=== PATIENT | male | born 1935 | race African-American/Black ===

== ENCOUNTER 2018-09-15 16:01 | Inpatient (IN) | payer OTHER ==
[~2018-09-15] VITALS: Ht 172.7 cm; Wt 123.8 kg
[2018-09-15] MEDS ORDERED: APIX2.5T PO (16:08)
[2018-09-15] MEDS ORDERED: VALS40TA11 PO (16:08)
[2018-09-15] MEDS ORDERED: CARV3.1242 PO (16:08)
[2018-09-15] MEDS ORDERED: METF-816 PO (16:08)
[2018-09-15] MEDS ORDERED: GLIP5TAB12 PO (16:08)
[2018-09-15] MEDS ORDERED: ATOR10TA69 PO (16:08)
[2018-09-15 18:20] LABS: CHLORIDE 101 mEq/L (98-107)
[2018-09-15 18:36] LABS: BASOPHILS % 0.5 % (0.0-2.0); EOSINOPHILS % 4.6 % (0.0-5.0); HEMATOCRIT. 32.7 % (42.0-52.0); HEMOGLOBIN. 10.8 g/dL (14.0-18.0); LYMPHOCYTES % 7.7 % (20.0-50.0); MEAN CORPUSCULAR HEMOGLOBIN 28.9 pg (28.0-32.0); MEAN PLATELET VOLUME 11.7 fl (7.4-10.4); NEUTROPHILS % 81.2 % (40.0-76.0); PLATELET 87 x1000/uL (130-400); RED BLOOD CELL COUNT 3.72 mill/uL (4.7-6.1); RED CELL DISTRIBUTION WIDTH 16.2 % (11.6-14.6)
[2018-09-15 18:42] LABS: CLARITY URINE CLEAR (CLEAR); COLOR URINE YELLOW (YELLOW); KETONES URINE NEGATIVE (NEGATIVE); LEUKOCYTE ESTERASE URINE NEGATIVE (NEGATIVE); NITRITE URINE NEGATIVE (NEGATIVE); OCCULT BLOOD URINE NEGATIVE (NEGATIVE); PROTEIN URINE NEGATIVE (NEGATIVE); SPECIFIC GRAVITY URINE 1.009 (1.005-1.030); UROBILINOGEN URINE 0.2 E.U./dL (0.2-1.0)
[2018-09-15 19:01] LABS: *BARBITURATES SCREEN URINE NEGATIVE (NEGATIVE)
[2018-09-15 19:02] LABS: *AMPHETAMINES SCREEN URINE NEGATIVE (NEGATIVE); *BENZODIAZEPINES SCREEN URINE NEGATIVE (NEGATIVE); *COCAINE SCREEN URINE NEGATIVE (NEGATIVE); METHADONE URINE SCREEN NEGATIVE (NEGATIVE); OPIATES URINE SCREEN NEGATIVE (NEGATIVE); PHENCYCLIDINE URINE SCREEN NEGATIVE (NEGATIVE)
[2018-09-15 19:03] LABS: CANNABINOID URINE SCREEN NEGATIVE (NEGATIVE)
[2018-09-15] MEDS ORDERED: ASPIRIN 325MG EC TABLET PO ONE (19:45)
[2018-09-15] MEDS ORDERED: CLONIDINE 0.2MG TABLET PO ONE (20:00)
[2018-09-15] MEDS ORDERED: ZOLPIDEM TARTRATE 5MG TABLET PO PRN (21:00)
[2018-09-15] MEDS ORDERED: ACETAMINOPHEN 325MG TABLET PO PRN (21:45)
[2018-09-15] MEDS ORDERED: TRAMADOL 50MG TABLET PO PRN (21:45)
[2018-09-15] MEDS ORDERED: GUAIFENESIN 200MG/10ML SUGAR FREE UDC PO PRN (21:45)
[2018-09-15] MEDS ORDERED: DEXTROSE 50% WATER 50ML SYRINGE IV PRN (21:45)
[2018-09-15] MEDS ORDERED: DOCUSATE SODIUM 100MG CAPSULE PO PRN (21:45)
[2018-09-15] MEDS ORDERED: NA PHOS,M-B/NA PHOS,DI-BA ENEMA 118ML PR PRN (21:45)
[2018-09-15] MEDS ORDERED: MORPHINE SULFATE 2 MG/ML CPJ (NOT FOR IM USE) IV PRN (21:45)
[2018-09-15] MEDS ORDERED: MAGNESIUM/ALUMINUM HYDROXIDE/SIMETHICONE 30ML UDC PO PRN (21:45)
[2018-09-15 22:46] LABS: TOTAL IRON BINDING CAPACITY 218 ug/dL (250-450)
[2018-09-15 23:47] LABS: CREATINE KINASE MB FRACTION 11.8 ng/mL (0.5-3.6)
[2018-09-16] VITALS (9 sets, daily range): BP systolic 140–174; BP diastolic 62–75
[2018-09-16] MEDS: HYDRALAZINE HCL 50MG TABLET PO SCH ×5 (00:15→22:10)
[2018-09-16] MEDS: ENOXAPARIN 120MG/0.8ML SYR SUBCUT SCH ×2 (04:34→12:07)
[2018-09-16] MEDS ORDERED: APIXABAN 2.5 MG TABLET PO SCH (06:00)
[2018-09-16] MEDS: CLONIDINE 0.1MG TABLET PO PRN (06:02)
[2018-09-16 06:37] LABS: CREATINE KINASE MB FRACTION 9.8 ng/mL (0.5-3.6)
[2018-09-16] MEDS: BLOOD SUGAR DIAGNOSTIC STRIP TEST SCH ×4 (10:00→21:00)
[2018-09-16] MEDS: INSULIN LISPRO 100 UNITS/ML SUBCUT SCH ×4 (10:00→21:23)
[2018-09-16] MEDS: ASPIRIN 325MG EC TABLET PO SCH (10:38)
[2018-09-16] MEDS: LISINOPRIL 20MG TABLET PO SCH ×2 (10:41→21:22)
[2018-09-16] MEDS: FAMOTIDINE 20MG TABLET PO SCH (11:04)
[2018-09-16] MEDS ORDERED: LIDOCAINE HCL 1% 20ML VIAL (Pyxis) INJ ONE (13:50)
[2018-09-16] MEDS ORDERED: IODIXANOL 320MG/ML 100 ML BOTTLE IV ONE (14:16)
[2018-09-16] MEDS ORDERED: MIDAZOLAM HCL 2 MG/2 ML VIAL ONE (14:23)
[2018-09-16] MEDS ORDERED: FENTANYL CITRATE/PF 50MCG/ML 2ML VIAL ONE (14:23)
[2018-09-16] MEDS ORDERED: HEPARIN SODIUM 1,000 UNIT/1ML VIAL IV ONE (16:27)
[2018-09-16] MEDS ORDERED: NITROGLYCERIN 50MCG/ML 10ML VIAL (CATH LAB) IV ONE (16:27)
[2018-09-16] MEDS ORDERED: NICARDIPINE 100MCG/ML 10ML VIAL (CATH LAB) IV ONE (16:27)
[2018-09-16] MEDS ORDERED: SODIUM CHLORIDE 0.9% 500 ML IV NR (16:30)
[2018-09-16] MEDS: ENOXAPARIN 100MG/ML SYR SUBCUT SCH (21:00)
[2018-09-16] MEDS: ATORVASTATIN CALCIUM 10MG TABLET PO SCH (21:22)
[2018-09-16] MEDS: IPRATROPIUM/ALBUTEROL 0.5-3(2.5)MG/3ML NEB INH PRN (21:39)
[2018-09-17] VITALS (12 sets, daily range): BP systolic 145–179; BP diastolic 62–95
[2018-09-17] MEDS: CLONIDINE 0.1MG TABLET PO PRN ×2 (04:08→17:36)
[2018-09-17] MEDS: HYDRALAZINE HCL 50MG TABLET PO SCH (06:08)
[2018-09-17] MEDS: BLOOD SUGAR DIAGNOSTIC STRIP TEST SCH ×4 (06:08→21:00)
[2018-09-17] MEDS: INSULIN LISPRO 100 UNITS/ML SUBCUT SCH ×4 (06:25→21:31)
[2018-09-17] MEDS: FAMOTIDINE 20MG TABLET PO SCH (08:36)
[2018-09-17] MEDS: ASPIRIN 325MG EC TABLET PO SCH (08:36)
[2018-09-17] MEDS: LISINOPRIL 20MG TABLET PO SCH ×2 (08:36→21:30)
[2018-09-17] MEDS: ENOXAPARIN 100MG/ML SYR SUBCUT SCH ×2 (08:38→21:30)
[2018-09-17 09:19] LABS: BASOPHILS % 0.5 % (0.0-2.0); EOSINOPHILS % 6.4 % (0.0-5.0); HEMATOCRIT. 37.4 % (42.0-52.0); HEMOGLOBIN. 12.3 g/dL (14.0-18.0); LYMPHOCYTES % 14.8 % (20.0-50.0); MEAN CORPUSCULAR HEMOGLOBIN 28.9 pg (28.0-32.0); MEAN CORPUSCULAR VOLUME 87.9 fL (80.0-94.0); NEUTROPHILS % 70.3 % (40.0-76.0); PLATELET 91 x1000/uL (130-400); RED BLOOD CELL COUNT 4.26 mill/uL (4.7-6.1)
[2018-09-17 11:06] LABS: PHOSPHORUS 3.1 mg/dL (2.5-4.9)
[2018-09-17] MEDS: HYDRALAZINE HCL 100MG TABLET PO SCH ×2 (14:22→21:30)
[2018-09-17] MEDS: AMMONIUM LACTATE 12% LOTION 240ML TOP SCH ×2 (14:24→16:38)
[2018-09-17] MEDS: ATORVASTATIN CALCIUM 10MG TABLET PO SCH (21:30)
[2018-09-17 23:34] LABS: VITAMIN B12 SERUM 1254 pg/mL (211-911)
[2018-09-17 23:35] LABS: FOLIC ACID (FOLATE) SERUM > 20.00 ng/mL (>5.38)
[2018-09-18] VITALS (17 sets, daily range): BP systolic 138–181; BP diastolic 51–96
[2018-09-18] MEDS: HYDRALAZINE HCL 100MG TABLET PO SCH ×3 (06:17→21:02)
[2018-09-18] MEDS: BLOOD SUGAR DIAGNOSTIC STRIP TEST SCH ×4 (06:17→21:00)
[2018-09-18] MEDS: INSULIN LISPRO 100 UNITS/ML SUBCUT SCH ×4 (06:34→21:00)
[2018-09-18] MEDS: NITROGLYCERIN 0.4MG TABLET SL SL PRN ×2 (07:51→08:04)
[2018-09-18] MEDS: IPRATROPIUM/ALBUTEROL 0.5-3(2.5)MG/3ML NEB INH PRN (08:18)
[2018-09-18] MEDS: LISINOPRIL 20MG TABLET PO SCH ×2 (08:20→21:02)
[2018-09-18] MEDS: ASPIRIN 325MG EC TABLET PO SCH (08:20)
[2018-09-18] MEDS: FAMOTIDINE 20MG TABLET PO SCH (08:20)
[2018-09-18] MEDS: AMMONIUM LACTATE 12% LOTION 240ML TOP SCH ×2 (08:20→17:32)
[2018-09-18 08:26] LABS: BASOPHILS % 0.7 % (0.0-2.0); EOSINOPHILS % 7.4 % (0.0-5.0); HEMATOCRIT. 37.2 % (42.0-52.0); HEMOGLOBIN. 12.1 g/dL (14.0-18.0); LYMPHOCYTES % 17.1 % (20.0-50.0); MEAN CORPUSCULAR HEMOGLOBIN 28.2 pg (28.0-32.0); MEAN CORPUSCULAR VOLUME 86.7 fL (80.0-94.0); MEAN PLATELET VOLUME 11.1 fl (7.4-10.4); MONOCYTES % 9.5 % (2.0-8.0); NEUTROPHILS % 65.3 % (40.0-76.0); PLATELET 102 x1000/uL (130-400); RED CELL DISTRIBUTION WIDTH 15.9 % (11.6-14.6)
[2018-09-18 08:35] LABS: PHOSPHORUS 3.1 mg/dL (2.5-4.9)
[2018-09-18] MEDS: ENOXAPARIN 100MG/ML SYR SUBCUT SCH (08:35)
[2018-09-18] MEDS: NITROGLYCERIN OINT 1GM/INCH UDPKT TD SCH ×4 (09:50→21:02)
[2018-09-18] MEDS ORDERED: ALPRAZOLAM 0.25 MG TABLET PO PRN (13:00)
[2018-09-18] MEDS ORDERED: NITROGLYCERIN 0.4MG TABLET SL SL PRN (13:00)
[2018-09-18] MEDS ORDERED: HEPARIN 25,000 UNITS PREMIX 500 ML IV SCH (13:15)
[2018-09-18] MEDS: SODIUM CHLORIDE 0.9% INJ 3ML FLUSH IVF SCH ×2 (14:18→21:02)
[2018-09-18] MEDS: CARVEDILOL 3.125 MG TABLET PO SCH ×2 (14:18→21:02)
[2018-09-18 15:20] LABS: INR 1.2; PROTHROMBIN TIME 11.6 sec (9.1-11.1)
[2018-09-18] MEDS ORDERED: HEPARIN 5000 UNITS/ML VIAL IV PRN ×2 (16:30)
[2018-09-18] MEDS ORDERED: HEPARIN 25,000 UNITS PREMIX 500 ML IV PRN (17:00)
[2018-09-18] MEDS ORDERED: DOCUSATE SODIUM 100MG CAPSULE PO SCH (21:00)
[2018-09-18] MEDS ORDERED: CHLORHEXIDINE GLUCONATE 4% EXTERNAL USE TOP SCH (21:00)
[2018-09-18] MEDS ORDERED: BISACODYL 10MG SUPP PR PRN (21:00)
[2018-09-18] MEDS ORDERED: ASCORBIC ACID 500 MG TABLET PO SCH (21:00)
[2018-09-18] MEDS: ALLOPURINOL 300 MG TABLET PO SCH (21:02)
[2018-09-18] MEDS: ATORVASTATIN CALCIUM 10MG TABLET PO SCH (21:02)
[2018-09-19] VITALS (39 sets, daily range): BP systolic 82–199; BP diastolic 22–74
[2018-09-19] MEDS: HYDRALAZINE HCL 100MG TABLET PO SCH ×2 (05:18→17:00)
[2018-09-19] MEDS: ALLOPURINOL 300 MG TABLET PO SCH (05:18)
[2018-09-19] MEDS: CHLORHEXIDINE GLUCONATE 4% EXTERNAL USE TOP SCH ×2 (05:18→17:00)
[2018-09-19] MEDS: SODIUM CHLORIDE 0.9% INJ 3ML FLUSH IVF SCH ×3 (05:19→22:00)
[2018-09-19 05:49] LABS: BASOPHILS % 0.5 % (0.0-2.0); EOSINOPHILS % 4.9 % (0.0-5.0); HEMATOCRIT. 35.1 % (42.0-52.0); HEMOGLOBIN. 11.3 g/dL (14.0-18.0); LYMPHOCYTES % 10.2 % (20.0-50.0); MEAN CORPUSCULAR HEMOGLOBIN 27.9 pg (28.0-32.0); MEAN PLATELET VOLUME 11.2 fl (7.4-10.4); MONOCYTES % 10.5 % (2.0-8.0); NEUTROPHILS % 73.9 % (40.0-76.0); PLATELET 105 x1000/uL (130-400); RED BLOOD CELL COUNT 4.04 mill/uL (4.7-6.1); RED CELL DISTRIBUTION WIDTH 15.9 % (11.6-14.6)
[2018-09-19 05:52] LABS: INR 1.2; PARTIAL THROMBOPLASTIN TIME 62.1 sec (23.4-31.0); PROTHROMBIN TIME 11.6 sec (9.1-11.1)
[2018-09-19 05:59] LABS: CHLORIDE 104 mEq/L (98-107)
[2018-09-19] MEDS ORDERED: EPINEPHRINE 4 MG in DEXT 5% WATER 246 ML IV SCH (06:00)
[2018-09-19] MEDS ORDERED: INSULIN REGULAR (DRIP) 100 UNITS in SODIUM CHLORIDE 0.9% 99 ML IV SCH (06:00)
[2018-09-19] MEDS ORDERED: PAPAVERINE HCL 180MG in SODIUM CHLORIDE 0.9% 24ML IV SCH (06:00)
[2018-09-19] MEDS ORDERED: VANCOMYCIN 1G PREMIX 200ML IV SCH (06:00)
[2018-09-19] MEDS ORDERED: NOREPINEPHRINE 4 MG in DEXT 5% WATER 246 ML IV SCH (06:00)
[2018-09-19] MEDS ORDERED: NICARDIPINE 40MG/200ML PREMIX 200 ML IV SCH (06:00)
[2018-09-19] MEDS ORDERED: DEL NIDO ELECTROLYTE-S(PH 7.4) 1,000 ML IV SCH ×2 (06:00)
[2018-09-19] MEDS ORDERED: AMINOCAPROIC ACID 10,000 MG in SODIUM CHLORIDE 0.9% 460 ML IV SCH (06:00)
[2018-09-19] MEDS ORDERED: DOBUTAMINE 250MG PREMIX 250 ML IV SCH (06:00)
[2018-09-19] MEDS ORDERED: ALFENTANIL HCL 500 MCG/ML 2ML AMPUL IJ ONE (06:03)
[2018-09-19] MEDS ORDERED: SUFENTANIL CITRATE 50 MCG/ML 5ML AMPUL IV ONE (06:04)
[2018-09-19] MEDS ORDERED: MIDAZOLAM HCL 5 MG/ML VIAL ONE (06:04)
[2018-09-19 06:05] LABS: PHOSPHORUS 3.9 mg/dL (2.5-4.9)
[2018-09-19] MEDS: BLOOD SUGAR DIAGNOSTIC STRIP TEST SCH ×8 (06:06→23:00)
[2018-09-19] MEDS ORDERED: GELATIN SPONGE,ABSORBABLE 12-7MM SPONGE ONE ×2 (06:08→09:29)
[2018-09-19] MEDS ORDERED: BACITRACIN 50,000 UNITS/VIAL ONE (06:08)
[2018-09-19] MEDS ORDERED: THROMBIN (BOVINE) 5000 UNITS/VIAL TOP ONE ×3 (06:08→09:25)
[2018-09-19] MEDS ORDERED: NORMAL SALINE 0.9% 10 ML SYR ONE ×2 (06:08→06:09)
[2018-09-19] MEDS ORDERED: BACITRACIN 15GM TUBE TOP ONE (06:09)
[2018-09-19] MEDS ORDERED: METHYLENE BLUE 50 MG/10 ML AMP IV ONE (06:21)
[2018-09-19] MEDS ORDERED: HEPARIN 1000 UNITS/ML 10ML ONE ×2 (06:21→07:10)
[2018-09-19] MEDS ORDERED: MORPHINE SULFATE 4 MG/ML CPJ (NOT FOR IM USE) IV PRN (06:30)
[2018-09-19] MEDS ORDERED: ALBUMIN HUMAN 25GM/100ML (25%) IV ONE (07:08)
[2018-09-19] MEDS ORDERED: AMIODARONE HCL 50MG/ML 3ML VIAL IV ONE (07:08)
[2018-09-19] MEDS ORDERED: AMINOCAPROIC ACID 250 MG/ML 20ML VIAL ONE (07:08)
[2018-09-19] MEDS ORDERED: MANNITOL 20% 500 ML IV ONE (07:09)
[2018-09-19] MEDS ORDERED: PHENYLEPHRINE HCL 10 MG/ML 1ML (IV VIAL) IV ONE (07:09)
[2018-09-19] MEDS ORDERED: CALCIUM CHLORIDE 1GM/10ML SYR IV ONE (07:09)
[2018-09-19] MEDS ORDERED: SODIUM BICARBONATE 8.4% 1 MEQ/ML 50ML SYR IV ONE ×2 (07:09→07:10)
[2018-09-19] MEDS ORDERED: HEPARIN 10,000 UNITS/ML VIAL ONE (07:10)
[2018-09-19] MEDS ORDERED: GELATIN SPONGE,ABSORBABLE SZ 100 ONE (09:25)
[2018-09-19] MEDS ORDERED: NITROGLYCERIN 50MG PREMIX 250 ML IV SCH (15:05)
[2018-09-19] MEDS ORDERED: SODIUM CHLORIDE 0.9% 500 ML IV PRN (15:05)
[2018-09-19] MEDS ORDERED: ALBUMIN HUMAN 12.5G/250ML (5%) IV PRN (15:15)
[2018-09-19] MEDS ORDERED: MAGNESIUM 1 G PREMIX 100 ML IV PRN (15:15)
[2018-09-19] MEDS ORDERED: ACETAMINOPHEN 325MG TABLET PO PRN (15:15)
[2018-09-19] MEDS ORDERED: MAGNESIUM 2 G PREMIX 50 ML IV PRN (15:15)
[2018-09-19] MEDS ORDERED: IPRATROPIUM/ALBUTEROL 0.5-3(2.5)MG/3ML NEB HHN SCH (15:15)
[2018-09-19] MEDS ORDERED: ONDANSETRON HCL 4MG/2ML INJ IV PRN (15:15)
[2018-09-19] MEDS ORDERED: OXYCODONE HCL/ACETAMINOPHEN 5/325MG TABLET PO PRN ×2 (15:15)
[2018-09-19 15:21] LABS: BASOPHILS % 0.2 % (0.0-2.0); EOSINOPHILS % 2.7 % (0.0-5.0); HEMATOCRIT. 27.2 % (42.0-52.0); HEMOGLOBIN. 9.3 g/dL (14.0-18.0); LYMPHOCYTES % 12.7 % (20.0-50.0); MEAN CORPUSCULAR HEMOGLOBIN 29.5 pg (28.0-32.0); MEAN CORPUSCULAR VOLUME 86.4 fL (80.0-94.0); MEAN PLATELET VOLUME 9.7 fl (7.4-10.4); MONOCYTES % 2.2 % (2.0-8.0); NEUTROPHILS % 82.2 % (40.0-76.0); PLATELET 123 x1000/uL (130-400); RED BLOOD CELL COUNT 3.15 mill/uL (4.7-6.1); RED CELL DISTRIBUTION WIDTH 15.3 % (11.6-14.6)
[2018-09-19 15:28] LABS: INR 1.5; PROTHROMBIN TIME 14.7 sec (9.1-11.1)
[2018-09-19] MEDS: DOPAMINE 400MG PREMIX 250 ML IV SCH ×2 (15:30→16:24)
[2018-09-19] MEDS: NOREPINEPHRINE 4 MG in DEXT 5% WATER 246 ML IV SCH ×2 (15:30→20:52)
[2018-09-19] MEDS: EPINEPHRINE 1 MG in DEXT 5% WATER 249 ML IV SCH ×2 (15:30→20:15)
[2018-09-19 15:44] LABS: PHOSPHORUS 3.1 mg/dL (2.5-4.9)
[2018-09-19] MEDS ORDERED: CALCIUM CHLORIDE 5,000 MG in DEXT 5% WATER 500 ML IV PRN (15:45)
[2018-09-19 15:48] LABS: BG CARBOXYHEMOGLOBIN 0.6 % (0.5-1.5); BG DEOXYHEMOGLOBIN 0.7 % (0.0-5.0); BG HCO3 ACT 27.5 mmol/L (22.0-26.0); BG METHEMOGLOBIN 0.5 % (0.0-1.5); BG OXYGEN SATURATION 99.3 % (92.0-98.5); BG OXYHEMOGLOBIN 98.2 % (94.0-97.0); BG PCO2 53.2 mmHg (35.0-45.0); BG PH 7.332 (7.350-7.450); BG PO2 404.1 mmHg (75.0-100.0); BG SAMPLE SITE A-LINE; BG TIDAL VOLUME(mL) 500 mL; BG TOTAL HEMOGLOBIN 10.4 g/dL (12.0-18.0); BG VENT MODE VENT - SIMV; BG VENT RATE 15 set
[2018-09-19] MEDS: MAGNESIUM HYDROXIDE 400MG/5ML 30ML UDC PO SCH ×2 (16:00→20:00)
[2018-09-19] MEDS: MAGNESIUM/ALUMINUM HYDROXIDE/SIMETHICONE 30ML UDC NG SCH ×2 (16:00→20:00)
[2018-09-19] MEDS ORDERED: DEXT 5%/0.45% NACL 1000ML 1,000 ML IV SCH (16:00)
[2018-09-19] MEDS ORDERED: INSULIN REGULAR (DRIP) 100 UNITS in SODIUM CHLORIDE 0.9% 99 ML IV PRN (16:00)
[2018-09-19] MEDS: DOCUSATE SODIUM 100MG CAPSULE PO SCH (17:00)
[2018-09-19] MEDS: CARVEDILOL 3.125 MG TABLET PO SCH ×2 (17:00→20:56)
[2018-09-19] MEDS: BACITRACIN 15GM TUBE TOP SCH (17:00)
[2018-09-19] MEDS: ASPIRIN 325MG EC TABLET PO SCH (17:00)
[2018-09-19] MEDS: LISINOPRIL 20MG TABLET PO SCH ×2 (17:00→20:57)
[2018-09-19] MEDS: AMMONIUM LACTATE 12% LOTION 240ML TOP SCH (17:00)
[2018-09-19] MEDS: NITROGLYCERIN OINT 1GM/INCH UDPKT TD SCH (17:00)
[2018-09-19] MEDS: INSULIN LISPRO 100 UNITS/ML SUBCUT SCH (17:00)
[2018-09-19 17:18] LABS: BG BASE EXCESS 0.1 mmol/L (-2.0-2.0); BG CARBOXYHEMOGLOBIN 0.9 % (0.5-1.5); BG DEOXYHEMOGLOBIN 1.8 % (0.0-5.0); BG FRACTION INSPIRED OXYGEN 60; BG HCO3 ACT 26.6 mmol/L (22.0-26.0); BG METHEMOGLOBIN 0.3 % (0.0-1.5); BG OXYGEN SATURATION 98.2 % (92.0-98.5); BG PCO2 52.2 mmHg (35.0-45.0); BG PH 7.325 (7.350-7.450); BG PO2 143.7 mmHg (75.0-100.0); BG PRESSURE SUPPORT 10; BG SAMPLE SITE A-LINE; BG TIDAL VOLUME(mL) 500 mL; BG VENT MODE VENT - SIMV; BG VENT RATE 15 set
[2018-09-19] MEDS ORDERED: DEXTROSE 50% WATER 50ML SYRINGE IV PRN ×2 (17:45)
[2018-09-19] MEDS: PANTOPRAZOLE SODIUM 40 MG/VIAL IV SCH (18:35)
[2018-09-19 18:49] LABS: PHOSPHORUS 2.1 mg/dL (2.5-4.9)
[2018-09-19] MEDS ORDERED: KCL 20MEQ/100ML PREMIX 100 ML IV NR (19:00)
[2018-09-19] MEDS: IPRATROPIUM/ALBUTEROL 0.5-3(2.5)MG/3ML NEB HHN SCH (20:26)
[2018-09-19] MEDS ORDERED: EPINEPHRINE 4 MG in SODIUM CHLORIDE 0.9% 249 ML IV PRN (20:45)
[2018-09-19] MEDS ORDERED: NOREPINEPHRINE 16 MG in DEXT 5% WATER 234 ML IV PRN (20:45)
[2018-09-19] MEDS: ATORVASTATIN CALCIUM 10MG TABLET PO SCH (20:57)
[2018-09-19] MEDS ORDERED: POTASSIUM PHOS,M-BASIC-D-BASIC 15 MMOL in DEXT 5% WATER 245 ML IV NR (21:00)
[2018-09-19] MEDS: EPINEPHRINE 4 MG in DEXT 5% WATER 246 ML IV SCH (21:23)
[2018-09-19 21:38] LABS: BG BASE EXCESS -0.1 mmol/L (-2.0-2.0); BG CARBOXYHEMOGLOBIN 0.4 % (0.5-1.5); BG FRACTION INSPIRED OXYGEN 40; BG HCO3 ACT 25.9 mmol/L (22.0-26.0); BG METHEMOGLOBIN 0.2 % (0.0-1.5); BG OXYHEMOGLOBIN 97.4 % (94.0-97.0); BG PCO2 48.3 mmHg (35.0-45.0); BG PH 7.348 (7.350-7.450); BG PO2 118.9 mmHg (75.0-100.0); BG PRESSURE SUPPORT 10; BG SAMPLE SITE A-LINE; BG TIDAL VOLUME(mL) 550 mL; BG TOTAL HEMOGLOBIN 11.8 g/dL (12.0-18.0); BG VENT MODE VENT - SIMV; BG VENT RATE 15 set
[2018-09-19 21:49] LABS: BG BASE EXCESS -1.9 mmol/L (-2.0-2.0); BG CARBOXYHEMOGLOBIN 0.9 % (0.5-1.5); BG DEOXYHEMOGLOBIN 45.3 % (0.0-5.0); BG FRACTION INSPIRED OXYGEN 40; BG HCO3 ACT 25.2 mmol/L (22.0-26.0); BG OXYGEN SATURATION 54.3 % (92.0-98.5); BG OXYHEMOGLOBIN 53.8 % (94.0-97.0); BG PCO2 54.2 mmHg (35.0-45.0); BG PH 7.286 (7.350-7.450); BG PO2 < 30.3 mmHg (75.0-100.0); BG PRESSURE SUPPORT 10; BG SAMPLE SITE OTHER; BG TIDAL VOLUME(mL) 550 mL; BG TOTAL HEMOGLOBIN 11.3 g/dL (12.0-18.0); BG VENT MODE VENT - SIMV; BG VENT RATE 15 set
[2018-09-20] VITALS (108 sets, daily range): BP systolic 96–225; BP diastolic 13–149
[2018-09-20] MEDS: IPRATROPIUM/ALBUTEROL 0.5-3(2.5)MG/3ML NEB HHN SCH ×6 (00:27→20:31)
[2018-09-20] MEDS: BLOOD SUGAR DIAGNOSTIC STRIP TEST SCH ×17 (01:00→23:00)
[2018-09-20 02:43] LABS: PHOSPHORUS 4.7 mg/dL (2.5-4.9)
[2018-09-20 02:47] LABS: HEMATOCRIT. 26.1 % (42.0-52.0); HEMOGLOBIN. 8.5 g/dL (14.0-18.0); MEAN CORPUSCULAR HEMOGLOBIN 28.5 pg (28.0-32.0); MEAN CORPUSCULAR VOLUME 87.2 fL (80.0-94.0); MEAN PLATELET VOLUME 10.2 fl (7.4-10.4); PLATELET 101 x1000/uL (130-400); RED CELL DISTRIBUTION WIDTH 15.4 % (11.6-14.6)
[2018-09-20 03:24] LABS: PLATELET ESTIMATE DECREASED
[2018-09-20] MEDS: SODIUM CHLORIDE 0.9% INJ 3ML FLUSH IVF SCH ×3 (06:00→22:00)
[2018-09-20] MEDS ORDERED: VANCOMYCIN 1 G PREMIX 200 ML IV SCH (07:00)
[2018-09-20 07:18] LABS: HEMATOCRIT. 24.5 % (42.0-52.0); HEMOGLOBIN. 8.3 g/dL (14.0-18.0); MEAN CORPUSCULAR HEMOGLOBIN 29.2 pg (28.0-32.0); MEAN CORPUSCULAR VOLUME 86.7 fL (80.0-94.0); MEAN PLATELET VOLUME 10.5 fl (7.4-10.4); PLATELET 78 x1000/uL (130-400); RED BLOOD CELL COUNT 2.83 mill/uL (4.7-6.1); RED CELL DISTRIBUTION WIDTH 15.5 % (11.6-14.6)
[2018-09-20 07:30] LABS: PHOSPHORUS 5.6 mg/dL (2.5-4.9)
[2018-09-20 07:33] LABS: BG BASE EXCESS 0.3 mmol/L (-2.0-2.0); BG CARBOXYHEMOGLOBIN 1.1 % (0.5-1.5); BG DEOXYHEMOGLOBIN 1.5 % (0.0-5.0); BG FRACTION INSPIRED OXYGEN 40; BG HCO3 ACT 25.3 mmol/L (22.0-26.0); BG METHEMOGLOBIN 0.3 % (0.0-1.5); BG OXYGEN SATURATION 98.5 % (92.0-98.5); BG OXYHEMOGLOBIN 97.1 % (94.0-97.0); BG PCO2 42.6 mmHg (35.0-45.0); BG PH 7.391 (7.350-7.450); BG PRESSURE SUPPORT 10; BG SAMPLE SITE A-LINE; BG TIDAL VOLUME(mL) 550 mL; BG TOTAL HEMOGLOBIN 8.6 g/dL (12.0-18.0); BG VENT MODE VENT - SIMV; BG VENT RATE 15 set
[2018-09-20] MEDS ORDERED: ALBUMIN HUMAN 25GM/100ML (25%) IV NR (08:00)
[2018-09-20] MEDS ORDERED: FUROSEMIDE 20MG/2ML VIAL IVP SCH (08:15)
[2018-09-20] MEDS: MORPHINE SULFATE 4 MG/ML CPJ (NOT FOR IM USE) IV PRN ×3 (08:39→16:21)
[2018-09-20] MEDS ORDERED: FAMOTIDINE 20MG/2ML VIAL IV SCH (09:00)
[2018-09-20] MEDS: BACITRACIN 15GM TUBE TOP SCH ×2 (09:00→15:27)
[2018-09-20] MEDS: CARVEDILOL 3.125 MG TABLET PO SCH (09:00)
[2018-09-20] MEDS: CHLORHEXIDINE GLUCONATE 4% EXTERNAL USE TOP SCH (09:00)
[2018-09-20] MEDS: LISINOPRIL 20MG TABLET PO SCH (09:00)
[2018-09-20 09:16] LABS: BG BASE EXCESS 0.4 mmol/L (-2.0-2.0); BG CARBOXYHEMOGLOBIN 0.1 % (0.5-1.5); BG DEOXYHEMOGLOBIN 1.9 % (0.0-5.0); BG FRACTION INSPIRED OXYGEN 40; BG HCO3 ACT 25.8 mmol/L (22.0-26.0); BG METHEMOGLOBIN 0.4 % (0.0-1.5); BG OXYGEN SATURATION 98.1 % (92.0-98.5); BG OXYHEMOGLOBIN 97.6 % (94.0-97.0); BG PCO2 45.7 mmHg (35.0-45.0); BG PO2 131.2 mmHg (75.0-100.0); BG PRESSURE SUPPORT 10; BG SAMPLE SITE A-LINE; BG TIDAL VOLUME(mL) 550 mL; BG TOTAL HEMOGLOBIN 8.7 g/dL (12.0-18.0); BG VENT MODE VENT - SIMV; BG VENT RATE 12 set
[2018-09-20] MEDS: PANTOPRAZOLE SODIUM 40 MG/VIAL IV SCH (10:33)
[2018-09-20 10:34] LABS: BG BASE EXCESS -1.4 mmol/L (-2.0-2.0); BG CARBOXYHEMOGLOBIN 0.6 % (0.5-1.5); BG DEOXYHEMOGLOBIN 1.7 % (0.0-5.0); BG FRACTION INSPIRED OXYGEN 40; BG HCO3 ACT 23.4 mmol/L (22.0-26.0); BG METHEMOGLOBIN 0.2 % (0.0-1.5); BG OXYGEN SATURATION 98.3 % (92.0-98.5); BG OXYHEMOGLOBIN 97.5 % (94.0-97.0); BG PCO2 39.6 mmHg (35.0-45.0); BG PO2 139.3 mmHg (75.0-100.0); BG PRESSURE SUPPORT 10; BG SAMPLE SITE A-LINE; BG TIDAL VOLUME(mL) 550 mL; BG TOTAL HEMOGLOBIN 9.4 g/dL (12.0-18.0); BG VENT MODE VENT - SIMV; BG VENT RATE 10 set
[2018-09-20] MEDS: EPINEPHRINE 4 MG in DEXT 5% WATER 246 ML IV SCH (10:34)
[2018-09-20] MEDS: DOCUSATE SODIUM 100MG CAPSULE PO SCH ×2 (10:34→17:38)
[2018-09-20] MEDS: ASPIRIN 81MG TABLET NG SCH (10:34)
[2018-09-20] MEDS: DEXT 5%/0.45% NACL 1000ML 1,000 ML IV SCH (10:35)
[2018-09-20 12:08] LABS: BG BASE EXCESS 1.9 mmol/L (-2.0-2.0); BG CARBOXYHEMOGLOBIN 0.8 % (0.5-1.5); BG DEOXYHEMOGLOBIN 1.5 % (0.0-5.0); BG FRACTION INSPIRED OXYGEN 40; BG HCO3 ACT 27.7 mmol/L (22.0-26.0); BG METHEMOGLOBIN 0.3 % (0.0-1.5); BG OXYGEN SATURATION 98.5 % (92.0-98.5); BG OXYHEMOGLOBIN 97.4 % (94.0-97.0); BG PCO2 49.2 mmHg (35.0-45.0); BG PH 7.368 (7.350-7.450); BG PO2 144.9 mmHg (75.0-100.0); BG PRESSURE SUPPORT 10; BG SAMPLE SITE A-LINE; BG TIDAL VOLUME(mL) 550 mL; BG TOTAL HEMOGLOBIN 9.6 g/dL (12.0-18.0); BG VENT MODE VENT - SIMV; BG VENT RATE 8 set
[2018-09-20 12:51] LABS: BASOPHILS % 0.3 % (0.0-2.0); EOSINOPHILS % 1.2 % (0.0-5.0); HEMATOCRIT. 26.4 % (42.0-52.0); HEMOGLOBIN. 8.9 g/dL (14.0-18.0); LYMPHOCYTES % 7.6 % (20.0-50.0); MEAN CORPUSCULAR HEMOGLOBIN 29.2 pg (28.0-32.0); MEAN CORPUSCULAR VOLUME 86.1 fL (80.0-94.0); MEAN PLATELET VOLUME 10.4 fl (7.4-10.4); MONOCYTES % 10.4 % (2.0-8.0); NEUTROPHILS % 80.5 % (40.0-76.0); PLATELET 71 x1000/uL (130-400); RED BLOOD CELL COUNT 3.06 mill/uL (4.7-6.1); RED CELL DISTRIBUTION WIDTH 15.6 % (11.6-14.6)
[2018-09-20] MEDS ORDERED: SODIUM CHLORIDE 0.9% IV ONE (13:15)
[2018-09-20] MEDS ORDERED: NALOXONE IV ONE (13:15)
[2018-09-20] MEDS: IRON SUCROSE COMPLEX 100 MG/5 ML ML IV SCH (13:20)
[2018-09-20] MEDS: MAGNESIUM SULFATE 3 GM in DEXT 5% WATER 100 ML IV PRN ×2 (13:21→13:26)
[2018-09-20] MEDS: AMMONIUM LACTATE 12% LOTION 240ML TOP SCH ×2 (14:05→17:38)
[2018-09-20 14:14] LABS: PLATELET ESTIMATE SLIGHTLY DECREASED
[2018-09-20 15:26] LABS: BG BASE EXCESS -0.8 mmol/L (-2.0-2.0); BG CARBOXYHEMOGLOBIN 0.1 % (0.5-1.5); BG FRACTION INSPIRED OXYGEN 40; BG HCO3 ACT 23.2 mmol/L (22.0-26.0); BG METHEMOGLOBIN 0.4 % (0.0-1.5); BG OXYHEMOGLOBIN 97.5 % (94.0-97.0); BG PCO2 35.7 mmHg (35.0-45.0); BG PH 7.431 (7.350-7.450); BG PO2 125.3 mmHg (75.0-100.0); BG PRESSURE SUPPORT 8; BG SAMPLE SITE A-LINE; BG TOTAL HEMOGLOBIN 9.4 g/dL (12.0-18.0); BG VENT MODE VENT - CPAP
[2018-09-20] MEDS ORDERED: ALBUMIN HUMAN 12.5G/250ML (5%) IV ONE (15:45)
[2018-09-20] MEDS: NICARDIPINE 50 MG in SODIUM CHLORIDE 0.9% 230 ML IV PRN ×2 (15:47→18:38)
[2018-09-20] MEDS ORDERED: RACEPINEPHRINE 2.25% 0.5ML NEB VIAL HHN NR (16:05)
[2018-09-20] MEDS ORDERED: TRAMADOL 50MG TABLET NG NR (16:15)
[2018-09-20 16:53] LABS: BG BASE EXCESS -3.3 mmol/L (-2.0-2.0); BG DEOXYHEMOGLOBIN 3.4 % (0.0-5.0); BG FRACTION INSPIRED OXYGEN 50; BG HCO3 ACT 21.3 mmol/L (22.0-26.0); BG METHEMOGLOBIN 0.5 % (0.0-1.5); BG OXYGEN SATURATION 96.6 % (92.0-98.5); BG OXYHEMOGLOBIN 96.1 % (94.0-97.0); BG PCO2 36.6 mmHg (35.0-45.0); BG PH 7.383 (7.350-7.450); BG PO2 102.4 mmHg (75.0-100.0); BG SAMPLE SITE A-LINE; BG TOTAL HEMOGLOBIN 9.2 g/dL (12.0-18.0); BG VENT MODE MASK - AEROSOL
[2018-09-20 18:06] LABS: HEMATOCRIT. 27.1 % (42.0-52.0); HEMOGLOBIN. 9.1 g/dL (14.0-18.0); MEAN CORPUSCULAR VOLUME 86.3 fL (80.0-94.0); MEAN PLATELET VOLUME 10.3 fl (7.4-10.4); PLATELET 65 x1000/uL (130-400); RED BLOOD CELL COUNT 3.13 mill/uL (4.7-6.1); RED CELL DISTRIBUTION WIDTH 15.9 % (11.6-14.6)
[2018-09-20 18:20] LABS: BG BASE EXCESS 1.2 mmol/L (-2.0-2.0); BG CARBOXYHEMOGLOBIN 0.5 % (0.5-1.5); BG DEOXYHEMOGLOBIN 1.9 % (0.0-5.0); BG FRACTION INSPIRED OXYGEN 50; BG HCO3 ACT 27.1 mmol/L (22.0-26.0); BG METHEMOGLOBIN 0.3 % (0.0-1.5); BG OXYGEN SATURATION 98.1 % (92.0-98.5); BG OXYHEMOGLOBIN 97.3 % (94.0-97.0); BG PCO2 49.1 mmHg (35.0-45.0); BG PH 7.359 (7.350-7.450); BG PO2 134.2 mmHg (75.0-100.0); BG SAMPLE SITE A-LINE; BG TOTAL HEMOGLOBIN 9.8 g/dL (12.0-18.0); BG VENT MODE MASK - AEROSOL
[2018-09-20 19:26] LABS: PLATELET ESTIMATE DECREASED
[2018-09-20 20:20] LABS: BG BASE EXCESS 0.1 mmol/L (-2.0-2.0); BG CARBOXYHEMOGLOBIN 0.5 % (0.5-1.5); BG DEOXYHEMOGLOBIN 3.7 % (0.0-5.0); BG FRACTION INSPIRED OXYGEN 50; BG HCO3 ACT 25.3 mmol/L (22.0-26.0); BG METHEMOGLOBIN 0.2 % (0.0-1.5); BG OXYGEN SATURATION 96.3 % (92.0-98.5); BG OXYHEMOGLOBIN 95.6 % (94.0-97.0); BG PCO2 43.5 mmHg (35.0-45.0); BG PH 7.383 (7.350-7.450); BG PO2 86.6 mmHg (75.0-100.0); BG SAMPLE SITE A-LINE; BG TOTAL HEMOGLOBIN 9.9 g/dL (12.0-18.0); BG VENT MODE MASK - AEROSOL
[2018-09-20] MEDS: ATORVASTATIN CALCIUM 10MG TABLET PO SCH (20:32)
[2018-09-20] MEDS ORDERED: EPOETIN ALFA 10000UNITS/ML VIAL SUBCUT SCH (21:00)
[2018-09-20] MEDS ORDERED: LORAZEPAM 2MG/ML CPJ IV NR (21:24)
[2018-09-21] VITALS (132 sets, daily range): BP systolic 83–264; BP diastolic 24–166
[2018-09-21] MEDS: INSULIN REGULAR (DRIP) 100 UNITS in SODIUM CHLORIDE 0.9% 100 ML IV SCH (00:13)
[2018-09-21] MEDS: IPRATROPIUM/ALBUTEROL 0.5-3(2.5)MG/3ML NEB HHN SCH ×6 (00:29→20:47)
[2018-09-21] MEDS: BLOOD SUGAR DIAGNOSTIC STRIP TEST SCH ×23 (01:00→23:00)
[2018-09-21] MEDS: SODIUM CHLORIDE 0.9% INJ 3ML FLUSH IVF SCH ×3 (04:37→22:30)
[2018-09-21 04:39] LABS: BG BASE EXCESS 0.6 mmol/L (-2.0-2.0); BG CARBOXYHEMOGLOBIN 0.5 % (0.5-1.5); BG DEOXYHEMOGLOBIN 3.2 % (0.0-5.0); BG FRACTION INSPIRED OXYGEN 50; BG HCO3 ACT 25.6 mmol/L (22.0-26.0); BG METHEMOGLOBIN 0.2 % (0.0-1.5); BG OXYGEN SATURATION 96.8 % (92.0-98.5); BG OXYHEMOGLOBIN 96.1 % (94.0-97.0); BG PCO2 42.8 mmHg (35.0-45.0); BG PH 7.394 (7.350-7.450); BG PO2 94.7 mmHg (75.0-100.0); BG SAMPLE SITE A-LINE; BG TOTAL HEMOGLOBIN 9.2 g/dL (12.0-18.0); BG VENT MODE MASK - AEROSOL
[2018-09-21 05:41] LABS: CHLORIDE 106 mEq/L (98-107)
[2018-09-21 05:43] LABS: HEMATOCRIT. 25.9 % (42.0-52.0); HEMOGLOBIN. 8.7 g/dL (14.0-18.0); MEAN CORPUSCULAR HEMOGLOBIN 29.1 pg (28.0-32.0); MEAN CORPUSCULAR VOLUME 86.3 fL (80.0-94.0); MEAN PLATELET VOLUME 11.3 fl (7.4-10.4); PLATELET 68 x1000/uL (130-400); RED CELL DISTRIBUTION WIDTH 15.5 % (11.6-14.6)
[2018-09-21 05:55] LABS: PHOSPHORUS 5.3 mg/dL (2.5-4.9)
[2018-09-21] MEDS: ASPIRIN 81MG TABLET NG SCH (07:01)
[2018-09-21] MEDS: CHLORHEXIDINE GLUCONATE 4% EXTERNAL USE TOP SCH (08:18)
[2018-09-21] MEDS: BACITRACIN 15GM TUBE TOP SCH ×2 (08:18→16:34)
[2018-09-21] MEDS: DOCUSATE SODIUM 100MG CAPSULE PO SCH ×2 (08:26→16:34)
[2018-09-21] MEDS: AMMONIUM LACTATE 12% LOTION 240ML TOP SCH ×2 (08:29→16:35)
[2018-09-21] MEDS: DEXT 5%/0.45% NACL 1000ML 1,000 ML IV SCH (08:29)
[2018-09-21] MEDS: IRON SUCROSE COMPLEX 100 MG/5 ML ML IV SCH (08:39)
[2018-09-21] MEDS: ACETAMINOPHEN 325MG TABLET PO PRN ×2 (09:26→15:00)
[2018-09-21] MEDS ORDERED: MAGNESIUM 2 G PREMIX 50 ML IV SCH (10:00)
[2018-09-21 10:03] LABS: PLATELET ESTIMATE DECREASED
[2018-09-21] MEDS ORDERED: METHYLPHENIDATE HCL 5MG TABLET PO NR (10:30)
[2018-09-21] MEDS ORDERED: FUROSEMIDE 20MG/2ML VIAL IVP NR (16:30)
[2018-09-21 18:34] LABS: T4 FREE 1.16 ng/dL (0.76-1.46)
[2018-09-21 19:06] LABS: VITAMIN B12 SERUM > 2000.0 pg/mL (211-911)
[2018-09-21] MEDS: ATORVASTATIN CALCIUM 10MG TABLET PO SCH (21:34)
[2018-09-22] VITALS (83 sets, daily range): BP systolic 114–182; BP diastolic 29–106
[2018-09-22] MEDS: IPRATROPIUM/ALBUTEROL 0.5-3(2.5)MG/3ML NEB HHN SCH ×6 (00:41→21:23)
[2018-09-22] MEDS: BLOOD SUGAR DIAGNOSTIC STRIP TEST SCH ×19 (01:00→22:00)
[2018-09-22] MEDS: DEXT 5%/0.45% NACL 1000ML 1,000 ML IV SCH ×2 (02:21→18:39)
[2018-09-22] MEDS: NICARDIPINE 50 MG in SODIUM CHLORIDE 0.9% 230 ML IV PRN (03:30)
[2018-09-22] MEDS: SODIUM CHLORIDE 0.9% INJ 3ML FLUSH IVF SCH ×3 (06:00→22:00)
[2018-09-22 06:34] LABS: HEMATOCRIT. 28.1 % (42.0-52.0); HEMOGLOBIN. 9.1 g/dL (14.0-18.0); MEAN CORPUSCULAR HEMOGLOBIN 28.8 pg (28.0-32.0); MEAN CORPUSCULAR VOLUME 88.6 fL (80.0-94.0); MEAN PLATELET VOLUME 11.2 fl (7.4-10.4); PLATELET 91 x1000/uL (130-400); RED BLOOD CELL COUNT 3.17 mill/uL (4.7-6.1); RED CELL DISTRIBUTION WIDTH 16.3 % (11.6-14.6)
[2018-09-22 06:44] LABS: PHOSPHORUS 3.6 mg/dL (2.5-4.9)
[2018-09-22 07:49] LABS: PLATELET ESTIMATE DECREASED
[2018-09-22 08:06] LABS: BG BASE EXCESS 2.2 mmol/L (-2.0-2.0); BG CARBOXYHEMOGLOBIN 0.9 % (0.5-1.5); BG DEOXYHEMOGLOBIN 6.2 % (0.0-5.0); BG FRACTION INSPIRED OXYGEN 32; BG HCO3 ACT 26.9 mmol/L (22.0-26.0); BG METHEMOGLOBIN 0.3 % (0.0-1.5); BG OXYGEN SATURATION 93.7 % (92.0-98.5); BG OXYHEMOGLOBIN 92.6 % (94.0-97.0); BG PCO2 42.4 mmHg (35.0-45.0); BG PO2 69.3 mmHg (75.0-100.0); BG SAMPLE SITE RIGHT BRACHIAL; BG TOTAL HEMOGLOBIN 9.2 g/dL (12.0-18.0); BG VENT MODE NASAL CANNULA
[2018-09-22] MEDS ORDERED: FUROSEMIDE 40MG/4ML VIAL IVP SCH (08:30)
[2018-09-22] MEDS: DOCUSATE SODIUM 100MG CAPSULE PO SCH ×2 (09:26→16:52)
[2018-09-22] MEDS: IRON SUCROSE COMPLEX 100 MG/5 ML ML IV SCH (09:26)
[2018-09-22] MEDS: AMMONIUM LACTATE 12% LOTION 240ML TOP SCH ×2 (09:27→16:53)
[2018-09-22] MEDS: BACITRACIN 15GM TUBE TOP SCH ×2 (09:27→16:53)
[2018-09-22] MEDS: ASPIRIN 81MG TABLET NG SCH (09:30)
[2018-09-22] MEDS: METOPROLOL TARTRATE 25MG TABLET PO SCH ×2 (09:30→16:53)
[2018-09-22] MEDS: IPRATROPIUM/ALBUTEROL 0.5-3(2.5)MG/3ML NEB INH PRN (14:27)
[2018-09-22] MEDS: INSULIN REGULAR (DRIP) 100 UNITS in SODIUM CHLORIDE 0.9% 100 ML IV SCH (18:39)
[2018-09-22] MEDS: ONDANSETRON HCL 4MG/2ML INJ IV PRN (19:24)
[2018-09-22] MEDS ORDERED: MAGNESIUM HYDROXIDE 400MG/5ML 30ML UDC PO SCH (20:00)
[2018-09-22] MEDS: ATORVASTATIN CALCIUM 10MG TABLET PO SCH (20:10)
[2018-09-22] MEDS ORDERED: FUROSEMIDE 20MG/2ML VIAL IVP NR (22:00)
[2018-09-23] VITALS (51 sets, daily range): BP systolic 89–182; BP diastolic 31–86
[2018-09-23] MEDS: IPRATROPIUM/ALBUTEROL 0.5-3(2.5)MG/3ML NEB HHN SCH ×6 (01:12→20:18)
[2018-09-23] MEDS: BLOOD SUGAR DIAGNOSTIC STRIP TEST SCH ×23 (02:00→23:00)
[2018-09-23] MEDS: SODIUM CHLORIDE 0.9% INJ 3ML FLUSH IVF SCH ×3 (05:10→20:44)
[2018-09-23] MEDS: DEXT 5%/0.45% NACL 1000ML 1,000 ML IV SCH (05:10)
[2018-09-23 05:57] LABS: BASOPHILS % 0.3 % (0.0-2.0); EOSINOPHILS % 4.4 % (0.0-5.0); HEMATOCRIT. 27.9 % (42.0-52.0); HEMOGLOBIN. 9.1 g/dL (14.0-18.0); LYMPHOCYTES % 8.4 % (20.0-50.0); MEAN CORPUSCULAR HEMOGLOBIN 29.1 pg (28.0-32.0); MEAN PLATELET VOLUME 11.7 fl (7.4-10.4); NEUTROPHILS % 73.9 % (40.0-76.0); PLATELET 115 x1000/uL (130-400); RED BLOOD CELL COUNT 3.14 mill/uL (4.7-6.1)
[2018-09-23 06:25] LABS: PHOSPHORUS 3.8 mg/dL (2.5-4.9)
[2018-09-23] MEDS ORDERED: FUROSEMIDE 20MG/2ML VIAL IVP SCH (08:15)
[2018-09-23] MEDS: DEXTROSE 5% WATER 1,000 ML IV SCH (08:25)
[2018-09-23] MEDS: IRON SUCROSE COMPLEX 100 MG/5 ML ML IV SCH (09:49)
[2018-09-23] MEDS: ASPIRIN 81MG TABLET NG SCH (09:49)
[2018-09-23] MEDS: DOCUSATE SODIUM 100MG CAPSULE PO SCH ×2 (09:49→18:03)
[2018-09-23] MEDS: METOPROLOL TARTRATE 25MG TABLET PO SCH ×2 (09:50→18:03)
[2018-09-23] MEDS: ENOXAPARIN 40MG/0.4ML SYR SUBCUT SCH (09:51)
[2018-09-23] MEDS: AMMONIUM LACTATE 12% LOTION 240ML TOP SCH (09:52)
[2018-09-23] MEDS ORDERED: BACITRACIN 15GM TUBE TOP SCH (10:00)
[2018-09-23] MEDS: BACITRACIN 15GM TUBE TOP SCH ×2 (10:39→20:44)
[2018-09-23] MEDS: ATORVASTATIN CALCIUM 10MG TABLET PO SCH (20:43)
[2018-09-24] VITALS (51 sets, daily range): BP systolic 121–174; BP diastolic 52–85
[2018-09-24] MEDS: IPRATROPIUM/ALBUTEROL 0.5-3(2.5)MG/3ML NEB HHN SCH ×6 (00:08→20:22)
[2018-09-24] MEDS: BLOOD SUGAR DIAGNOSTIC STRIP TEST SCH ×15 (01:00→21:29)
[2018-09-24] MEDS: DEXTROSE 5% WATER 1,000 ML IV SCH (04:15)
[2018-09-24] MEDS: SODIUM CHLORIDE 0.9% INJ 3ML FLUSH IVF SCH ×3 (05:15→21:29)
[2018-09-24 05:35] LABS: BASOPHILS % 0.4 % (0.0-2.0); EOSINOPHILS % 6.3 % (0.0-5.0); HEMATOCRIT. 28.8 % (42.0-52.0); HEMOGLOBIN. 9.3 g/dL (14.0-18.0); LYMPHOCYTES % 11.9 % (20.0-50.0); MEAN CORPUSCULAR HEMOGLOBIN 29.1 pg (28.0-32.0); MEAN CORPUSCULAR VOLUME 89.7 fL (80.0-94.0); MEAN PLATELET VOLUME 11.1 fl (7.4-10.4); MONOCYTES % 13.9 % (2.0-8.0); NEUTROPHILS % 67.5 % (40.0-76.0); PLATELET 142 x1000/uL (130-400); RED BLOOD CELL COUNT 3.21 mill/uL (4.7-6.1); RED CELL DISTRIBUTION WIDTH 15.9 % (11.6-14.6)
[2018-09-24 05:42] LABS: CHLORIDE 105 mEq/L (98-107)
[2018-09-24 05:50] LABS: PHOSPHORUS 3.3 mg/dL (2.5-4.9)
[2018-09-24] MEDS: IRON SUCROSE COMPLEX 100 MG/5 ML ML IV SCH (08:23)
[2018-09-24] MEDS: ASPIRIN 81MG TABLET NG SCH (08:25)
[2018-09-24] MEDS: DOCUSATE SODIUM 100MG CAPSULE PO SCH ×2 (08:25→17:25)
[2018-09-24] MEDS: METOPROLOL TARTRATE 25MG TABLET PO SCH ×2 (08:25→17:25)
[2018-09-24] MEDS: BACITRACIN 15GM TUBE TOP SCH ×2 (08:26→21:28)
[2018-09-24] MEDS: AMMONIUM LACTATE 12% LOTION 240ML TOP SCH ×2 (08:26→21:28)
[2018-09-24] MEDS: ENOXAPARIN 40MG/0.4ML SYR SUBCUT SCH ×2 (09:00→10:12)
[2018-09-24] MEDS ORDERED: FUROSEMIDE 20MG/2ML VIAL IVP SCH (11:00)
[2018-09-24] MEDS ORDERED: MAGNESIUM 2 G PREMIX 50 ML IV NR (12:00)
[2018-09-24] MEDS ORDERED: MAGNESIUM HYDROXIDE 400MG/5ML 30ML UDC PO PRN (12:15)
[2018-09-24] MEDS ORDERED: DEXTROSE 50% WATER 50ML SYRINGE IV PRN (12:15)
[2018-09-24] MEDS: INSULIN LISPRO 100 UNITS/ML SUBCUT SCH ×3 (12:48→21:30)
[2018-09-24] MEDS ORDERED: FUROSEMIDE 40MG/4ML VIAL IVP NR (15:00)
[2018-09-24] MEDS: MAGNESIUM HYDROXIDE 400MG/5ML 30ML UDC PO SCH ×2 (15:36→21:29)
[2018-09-24] MEDS: ONDANSETRON HCL 4MG/2ML INJ IV PRN (18:00)
[2018-09-24] MEDS: ATORVASTATIN CALCIUM 10MG TABLET PO SCH (21:29)
[2018-09-25] VITALS (32 sets, daily range): BP systolic 69–175; BP diastolic 39–94
[2018-09-25] MEDS: MAGNESIUM HYDROXIDE 400MG/5ML 30ML UDC PO SCH ×7 (04:00→23:13)
[2018-09-25] MEDS: IPRATROPIUM/ALBUTEROL 0.5-3(2.5)MG/3ML NEB HHN SCH ×6 (04:57→21:42)
[2018-09-25] MEDS: SODIUM CHLORIDE 0.9% INJ 3ML FLUSH IVF SCH ×3 (05:47→22:17)
[2018-09-25 05:49] LABS: HEMATOCRIT. 28.6 % (42.0-52.0); HEMOGLOBIN. 9.4 g/dL (14.0-18.0); MEAN CORPUSCULAR HEMOGLOBIN 29.4 pg (28.0-32.0); MEAN CORPUSCULAR VOLUME 89.6 fL (80.0-94.0); MEAN PLATELET VOLUME 10.7 fl (7.4-10.4); PLATELET 151 x1000/uL (130-400); RED BLOOD CELL COUNT 3.19 mill/uL (4.7-6.1)
[2018-09-25 06:10] LABS: CHLORIDE 102 mEq/L (98-107)
[2018-09-25 06:22] LABS: PHOSPHORUS 2.5 mg/dL (2.5-4.9)
[2018-09-25] MEDS: BLOOD SUGAR DIAGNOSTIC STRIP TEST SCH ×3 (07:50→20:55)
[2018-09-25] MEDS: ENOXAPARIN 40MG/0.4ML SYR SUBCUT SCH (08:42)
[2018-09-25] MEDS: METOPROLOL TARTRATE 25MG TABLET PO SCH ×2 (08:42→17:49)
[2018-09-25] MEDS: ASPIRIN 81MG TABLET NG SCH (08:42)
[2018-09-25] MEDS: BACITRACIN 15GM TUBE TOP SCH ×2 (08:42→21:52)
[2018-09-25] MEDS: AMMONIUM LACTATE 12% LOTION 240ML TOP SCH ×2 (08:42→21:53)
[2018-09-25] MEDS: DOCUSATE SODIUM 100MG CAPSULE PO SCH ×2 (08:42→17:45)
[2018-09-25] MEDS: INSULIN LISPRO 100 UNITS/ML SUBCUT SCH ×4 (08:43→21:08)
[2018-09-25 09:45] LABS: PLATELET ESTIMATE NORMAL
[2018-09-25] MEDS: APIXABAN 2.5 MG TABLET PO SCH (17:48)
[2018-09-25] MEDS: ONDANSETRON HCL 4MG/2ML INJ IV PRN (20:12)
[2018-09-25] MEDS: ATORVASTATIN CALCIUM 10MG TABLET PO SCH (21:52)
[2018-09-26] VITALS (15 sets, daily range): BP systolic 130–173; BP diastolic 56–92
[2018-09-26] MEDS: MAGNESIUM HYDROXIDE 400MG/5ML 30ML UDC PO SCH ×6 (04:15→23:26)
[2018-09-26] MEDS: IPRATROPIUM/ALBUTEROL 0.5-3(2.5)MG/3ML NEB HHN SCH ×5 (05:09→20:00)
[2018-09-26] MEDS: SODIUM CHLORIDE 0.9% INJ 3ML FLUSH IVF SCH ×3 (06:45→21:24)
[2018-09-26] MEDS: BLOOD SUGAR DIAGNOSTIC STRIP TEST SCH ×4 (06:47→20:57)
[2018-09-26] MEDS: INSULIN LISPRO 100 UNITS/ML SUBCUT SCH ×4 (07:20→21:21)
[2018-09-26 07:49] LABS: HEMATOCRIT 30.5 % (42.0-52.0); MEAN CORPUSCULAR HEMOGLOBIN 29.6 pg (28.0-32.0); MEAN CORPUSCULAR VOLUME 90.4 fL (80.0-94.0); PLATELET 193 x1000/uL (130-400); RED BLOOD CELL COUNT 3.37 mill/uL (4.7-6.1); RED CELL DISTRIBUTION WIDTH 15.8 % (11.6-14.6)
[2018-09-26] MEDS: APIXABAN 2.5 MG TABLET PO SCH ×2 (08:36→17:43)
[2018-09-26] MEDS: METOPROLOL TARTRATE 25MG TABLET PO SCH ×2 (08:37→17:49)
[2018-09-26] MEDS: ASPIRIN 81MG TABLET NG SCH (08:37)
[2018-09-26] MEDS: DOCUSATE SODIUM 100MG CAPSULE PO SCH ×2 (08:38→17:42)
[2018-09-26] MEDS: BACITRACIN 15GM TUBE TOP SCH ×2 (09:26→21:26)
[2018-09-26] MEDS: AMMONIUM LACTATE 12% LOTION 240ML TOP SCH ×2 (09:27→21:26)
[2018-09-26] MEDS: LOSARTAN POTASSIUM 25 MG TABLET PO SCH (09:59)
[2018-09-26] MEDS: ATORVASTATIN CALCIUM 10MG TABLET PO SCH (21:24)
[2018-09-27] VITALS (17 sets, daily range): BP systolic 103–178; BP diastolic 28–106
[2018-09-27] MEDS: MAGNESIUM HYDROXIDE 400MG/5ML 30ML UDC PO SCH ×4 (04:00→15:50)
[2018-09-27] MEDS: IPRATROPIUM/ALBUTEROL 0.5-3(2.5)MG/3ML NEB HHN SCH ×6 (04:02→20:00)
[2018-09-27] MEDS: BLOOD SUGAR DIAGNOSTIC STRIP TEST SCH ×4 (06:02→21:05)
[2018-09-27 06:40] LABS: BASOPHILS % 0.8 % (0.0-2.0); EOSINOPHILS % 5.7 % (0.0-5.0); LYMPHOCYTES % 8.1 % (20.0-50.0); MEAN CORPUSCULAR HEMOGLOBIN 29.3 pg (28.0-32.0); MEAN CORPUSCULAR VOLUME 90.9 fL (80.0-94.0); MEAN PLATELET VOLUME 11.7 fl (7.4-10.4); MONOCYTES % 9.4 % (2.0-8.0); PLATELET 200 x1000/uL (130-400); RED BLOOD CELL COUNT 3.41 mill/uL (4.7-6.1); RED CELL DISTRIBUTION WIDTH 16.4 % (11.6-14.6)
[2018-09-27] MEDS: SODIUM CHLORIDE 0.9% INJ 3ML FLUSH IVF SCH ×3 (06:41→22:00)
[2018-09-27 06:51] LABS: PHOSPHORUS 2.7 mg/dL (2.5-4.9)
[2018-09-27] MEDS: INSULIN LISPRO 100 UNITS/ML SUBCUT SCH ×4 (07:20→21:13)
[2018-09-27] MEDS: APIXABAN 2.5 MG TABLET PO SCH ×2 (09:39→17:16)
[2018-09-27] MEDS: METOPROLOL TARTRATE 25MG TABLET PO SCH ×2 (09:40→17:19)
[2018-09-27] MEDS: DOCUSATE SODIUM 100MG CAPSULE PO SCH ×2 (09:40→17:00)
[2018-09-27] MEDS: ASPIRIN 81MG TABLET NG SCH (09:40)
[2018-09-27] MEDS: LOSARTAN POTASSIUM 25 MG TABLET PO SCH (09:40)
[2018-09-27] MEDS: FUROSEMIDE 20MG/2ML VIAL IVP SCH (09:43)
[2018-09-27] MEDS: BACITRACIN 15GM TUBE TOP SCH ×2 (10:05→21:12)
[2018-09-27] MEDS: AMMONIUM LACTATE 12% LOTION 240ML TOP SCH ×2 (10:05→21:12)
[2018-09-27] MEDS: ATORVASTATIN CALCIUM 10MG TABLET PO SCH (21:11)
[2018-09-28] VITALS (14 sets, daily range): BP systolic 140–171; BP diastolic 63–90
[2018-09-28] MEDS: IPRATROPIUM/ALBUTEROL 0.5-3(2.5)MG/3ML NEB HHN SCH ×6 (00:10→20:41)
[2018-09-28] MEDS: BLOOD SUGAR DIAGNOSTIC STRIP TEST SCH ×4 (06:26→21:49)
[2018-09-28] MEDS: SODIUM CHLORIDE 0.9% INJ 3ML FLUSH IVF SCH ×3 (06:26→21:49)
[2018-09-28] MEDS: INSULIN LISPRO 100 UNITS/ML SUBCUT SCH ×4 (06:26→23:40)
[2018-09-28 07:33] LABS: BASOPHILS % 0.7 % (0.0-2.0); EOSINOPHILS % 4.8 % (0.0-5.0); HEMATOCRIT. 32.4 % (42.0-52.0); HEMOGLOBIN. 10.5 g/dL (14.0-18.0); LYMPHOCYTES % 8.1 % (20.0-50.0); MEAN CORPUSCULAR HEMOGLOBIN 29.7 pg (28.0-32.0); MEAN CORPUSCULAR VOLUME 91.5 fL (80.0-94.0); MEAN PLATELET VOLUME 10.9 fl (7.4-10.4); MONOCYTES % 7.9 % (2.0-8.0); NEUTROPHILS % 78.5 % (40.0-76.0); PLATELET 204 x1000/uL (130-400); RED BLOOD CELL COUNT 3.54 mill/uL (4.7-6.1); RED CELL DISTRIBUTION WIDTH 17.3 % (11.6-14.6)
[2018-09-28 07:56] LABS: PHOSPHORUS 2.4 mg/dL (2.5-4.9)
[2018-09-28] MEDS: LOSARTAN POTASSIUM 25 MG TABLET PO SCH (08:51)
[2018-09-28] MEDS: METOPROLOL TARTRATE 25MG TABLET PO SCH ×2 (08:51→17:47)
[2018-09-28] MEDS: DOCUSATE SODIUM 100MG CAPSULE PO SCH ×2 (08:53→17:00)
[2018-09-28] MEDS: AMMONIUM LACTATE 12% LOTION 240ML TOP SCH ×2 (08:58→21:49)
[2018-09-28] MEDS: ACETAMINOPHEN 325MG TABLET PO PRN ×2 (09:10→09:15)
[2018-09-28] MEDS: FUROSEMIDE 20MG/2ML VIAL IVP SCH (09:14)
[2018-09-28] MEDS: BACITRACIN 15GM TUBE TOP SCH ×2 (09:15→23:32)
[2018-09-28] MEDS ORDERED: DIPHENHYDRAMINE 25MG CAPSULE PO PRN (16:30)
[2018-09-28] MEDS: FUROSEMIDE 40MG/4ML VIAL IVP SCH (17:45)
[2018-09-28] MEDS: ATORVASTATIN CALCIUM 10MG TABLET PO SCH (21:47)
[2018-09-28] MEDS: FAMOTIDINE 20MG TABLET PO SCH (21:47)
[2018-09-29] VITALS (13 sets, daily range): BP systolic 118–180; BP diastolic 52–87
[2018-09-29] MEDS: IPRATROPIUM/ALBUTEROL 0.5-3(2.5)MG/3ML NEB HHN SCH ×7 (00:15→23:44)
[2018-09-29] MEDS: SODIUM CHLORIDE 0.9% INJ 3ML FLUSH IVF SCH ×3 (05:56→21:44)
[2018-09-29] MEDS: BLOOD SUGAR DIAGNOSTIC STRIP TEST SCH ×4 (05:56→21:44)
[2018-09-29] MEDS: INSULIN LISPRO 100 UNITS/ML SUBCUT SCH ×4 (05:57→21:00)
[2018-09-29 08:15] LABS: HEMATOCRIT. 31.9 % (42.0-52.0); HEMOGLOBIN. 10.2 g/dL (14.0-18.0); MEAN CORPUSCULAR HEMOGLOBIN 29.1 pg (28.0-32.0); MEAN CORPUSCULAR VOLUME 91.4 fL (80.0-94.0); MEAN PLATELET VOLUME 11.8 fl (7.4-10.4); PLATELET 192 x1000/uL (130-400); RED BLOOD CELL COUNT 3.49 mill/uL (4.7-6.1); RED CELL DISTRIBUTION WIDTH 17.2 % (11.6-14.6)
[2018-09-29] MEDS: FUROSEMIDE 40MG/4ML VIAL IVP SCH ×2 (08:46→17:20)
[2018-09-29] MEDS: LOSARTAN POTASSIUM 50 MG TABLET PO SCH (08:46)
[2018-09-29] MEDS: BACITRACIN 15GM TUBE TOP SCH ×2 (08:47→21:44)
[2018-09-29] MEDS: DOCUSATE SODIUM 100MG CAPSULE PO SCH ×2 (08:47→17:20)
[2018-09-29] MEDS: METOPROLOL TARTRATE 25MG TABLET PO SCH (08:47)
[2018-09-29] MEDS: AMMONIUM LACTATE 12% LOTION 240ML TOP SCH ×2 (08:48→21:46)
[2018-09-29 10:09] LABS: PHOSPHORUS 2.2 mg/dL (2.5-4.9)
[2018-09-29] MEDS: ACETAMINOPHEN 325MG TABLET PO PRN (11:13)
[2018-09-29] MEDS ORDERED: CLONIDINE 0.1MG TABLET PO PRN (11:45)
[2018-09-29] MEDS ORDERED: CLONIDINE 0.1MG TABLET PO NR (11:45)
[2018-09-29 13:50] LABS: PLATELET ESTIMATE NORMAL
[2018-09-29] MEDS ORDERED: SODIUM PHOS,M-BASIC-D-BASIC 15 MM in DEXT 5% WATER 245 ML IV NR (14:00)
[2018-09-29] MEDS: ATORVASTATIN CALCIUM 10MG TABLET PO SCH (21:41)
[2018-09-29] MEDS: FAMOTIDINE 20MG TABLET PO SCH (21:41)
[2018-09-29] MEDS: METOPROLOL TARTRATE 50MG TABLET PO SCH (21:44)
[2018-09-30] VITALS (14 sets, daily range): BP systolic 127–169; BP diastolic 50–91
[2018-09-30] MEDS: IPRATROPIUM/ALBUTEROL 0.5-3(2.5)MG/3ML NEB HHN SCH ×2 (03:56→12:33)
[2018-09-30] MEDS: SODIUM CHLORIDE 0.9% INJ 3ML FLUSH IVF SCH ×2 (05:52→14:00)
[2018-09-30] MEDS: BLOOD SUGAR DIAGNOSTIC STRIP TEST SCH ×3 (05:52→16:50)
[2018-09-30] MEDS: INSULIN LISPRO 100 UNITS/ML SUBCUT SCH ×3 (05:52→17:47)
[2018-09-30 07:31] LABS: PHOSPHORUS 2.6 mg/dL (2.5-4.9)
[2018-09-30 07:37] LABS: BASOPHILS % 0.5 % (0.0-2.0); EOSINOPHILS % 5.8 % (0.0-5.0); HEMOGLOBIN. 11.1 g/dL (14.0-18.0); LYMPHOCYTES % 7.5 % (20.0-50.0); MEAN CORPUSCULAR HEMOGLOBIN 29.9 pg (28.0-32.0); MONOCYTES % 7.9 % (2.0-8.0); NEUTROPHILS % 78.3 % (40.0-76.0); PLATELET 186 x1000/uL (130-400)
[2018-09-30 07:47] LABS: INR 1.2; PARTIAL THROMBOPLASTIN TIME 33.3 sec (23.4-31.0); PROTHROMBIN TIME 12.1 sec (9.1-11.1)
[2018-09-30] MEDS ORDERED: SODIUM BICARBONATE 4% (2.4MEQ) 5ML VIAL IV ONE (08:31)
[2018-09-30] MEDS ORDERED: LIDOCAINE HCL 1% 20ML VIAL (Pyxis) INJ ONE (08:31)
[2018-09-30] MEDS: LOSARTAN POTASSIUM 50 MG TABLET PO SCH (08:46)
[2018-09-30] MEDS: BACITRACIN 15GM TUBE TOP SCH (08:47)
[2018-09-30] MEDS: FUROSEMIDE 40MG/4ML VIAL IVP SCH ×2 (08:47→17:27)
[2018-09-30] MEDS: METOPROLOL TARTRATE 50MG TABLET PO SCH (08:47)
[2018-09-30] MEDS: AMMONIUM LACTATE 12% LOTION 240ML TOP SCH (08:48)
[2018-09-30] MEDS ORDERED: ASPIRIN 81MG TABLET PO SCH (10:30)
[2018-09-30] MEDS: DOCUSATE SODIUM 100MG CAPSULE PO SCH ×2 (12:18→17:26)
[2018-09-30] MEDS ORDERED: FURO-151 PO (16:42)
[2018-09-30] MEDS ORDERED: APIXABAN 2.5 MG TABLET PO SCH (17:00)
== END 2018-09-30 19:55 | DRG 233 ==
LOC: ER 18:28 → EDBEDREQ 21:27 → EDBEDREQTM 21:27 → EDBEDREQ 21:29 → SUPCPDRO 21:39 → EDBEDREQSVC 09-16 04:11 → EDBEDREQTM 09-16 04:16 → ENRESERV 09-16 07:53 → 3WST 09-16 09:07 → CVICU 09-19 07:50 → 3WST 09-25 11:45
PROVIDERS: ADMIT Internal Medicine; ATTEND Internal Medicine
PROC: B2111ZZ Fluoroscopy of Multiple Coronary Arteries using Low Osmolar Contrast (ICD-10-PCS; principal; 2018-09-16)
PROC: B2151ZZ Fluoroscopy of Left Heart using Low Osmolar Contrast (ICD-10-PCS; 2018-09-16)
PROC: 4A023N7 Measurement of Cardiac Sampling and Pressure, Left Heart, Percutaneous Approach (ICD-10-PCS; 2018-09-16)
PROC: 02100Z9 Bypass Coronary Artery, One Artery from Left Internal Mammary, Open Approach (ICD-10-PCS; 2018-09-19)
PROC: 021209W Bypass Coronary Artery, Three Arteries from Aorta with Autologous Venous Tissue, Open Approach (ICD-10-PCS; 2018-09-19)
PROC: 06BQ0ZZ Excision of Left Saphenous Vein, Open Approach (ICD-10-PCS; 2018-09-19)
PROC: B24BZZ4 Ultrasonography of Heart with Aorta, Transesophageal (ICD-10-PCS; 2018-09-19)
PROC: 5A1221Z Performance of Cardiac Output, Continuous (ICD-10-PCS; 2018-09-19)
PROC: 30233L1 Transfusion of Nonautologous Fresh Plasma into Peripheral Vein, Percutaneous Approach (ICD-10-PCS; 2018-09-19)
PROC: 30233N1 Transfusion of Nonautologous Red Blood Cells into Peripheral Vein, Percutaneous Approach (ICD-10-PCS; 2018-09-19)
PROC: 30233R1 Transfusion of Nonautologous Platelets into Peripheral Vein, Percutaneous Approach (ICD-10-PCS; 2018-09-19)
PROC: 30233K1 Transfusion of Nonautologous Frozen Plasma into Peripheral Vein, Percutaneous Approach (ICD-10-PCS; 2018-09-19)
PROC: 02HV33Z Insertion of Infusion Device into Superior Vena Cava, Percutaneous Approach (ICD-10-PCS; 2018-09-22)
PROC: B548ZZA Ultrasonography of Superior Vena Cava, Guidance (ICD-10-PCS; 2018-09-22)
PROC: 4A00X4Z Measurement of Central Nervous Electrical Activity, External Approach (ICD-10-PCS; 2018-09-22)
PROC: 0W9B3ZZ Drainage of Left Pleural Cavity, Percutaneous Approach (ICD-10-PCS; 2018-09-30)
DX: I21.4 Non-ST elevation (NSTEMI) myocardial infarction (principal); I50.43 Acute on chronic combined systolic (congestive) and diastolic (congestive) heart failure; I63.9 Cerebral infarction, unspecified; E44.0 Moderate protein-calorie malnutrition; I13.0 Hypertensive heart and chronic kidney disease with heart failure and stage 1 through stage 4 chronic kidney disease, or unspecified chronic kidney disease; D62 Acute posthemorrhagic anemia; G81.94 Hemiplegia, unspecified affecting left nondominant side; I48.1 Persistent atrial fibrillation; Z68.41 Body mass index [BMI] 40.0-44.9, adult; E87.1 Hypo-osmolality and hyponatremia; N17.9 Acute kidney failure, unspecified; E11.65 Type 2 diabetes mellitus with hyperglycemia; I65.23 Occlusion and stenosis of bilateral carotid arteries; D63.1 Anemia in chronic kidney disease; D69.6 Thrombocytopenia, unspecified; D72.829 Elevated white blood cell count, unspecified; E11.22 Type 2 diabetes mellitus with diabetic chronic kidney disease; E66.9 Obesity, unspecified; E78.00 Pure hypercholesterolemia, unspecified; E78.5 Hyperlipidemia, unspecified; E83.51 Hypocalcemia; G89.29 Other chronic pain; I16.0 Hypertensive urgency; N18.3 Chronic kidney disease, stage 3 (moderate); I25.110 Atherosclerotic heart disease of native coronary artery with unstable angina pectoris; I25.5 Ischemic cardiomyopathy; I27.20 Pulmonary hypertension, unspecified; I34.0 Nonrheumatic mitral (valve) insufficiency; I48.2 Chronic atrial fibrillation; L89.90 Pressure ulcer of unspecified site, unspecified stage; M54.5 Low back pain; S91.311A Laceration without foreign body, right foot, initial encounter; X58.XXXA Exposure to other specified factors, initial encounter; Y93.89 Activity, other specified; Y92.89 Other specified places as the place of occurrence of the external cause; Y99.8 Other external cause status; Z78.1 Physical restraint status; Z79.01 Long term (current) use of anticoagulants; Z79.4 Long term (current) use of insulin; Z79.899 Other long term (current) drug therapy; Z82.49 Family history of ischemic heart disease and other diseases of the circulatory system; Z83.3 Family history of diabetes mellitus; Z86.73 Personal history of transient ischemic attack (TIA), and cerebral infarction without residual deficits; Z87.442 Personal history of urinary calculi; Z87.891 Personal history of nicotine dependence; Z91.19 Patient's noncompliance with other medical treatment and regimen; Z88.0 Allergy status to penicillin; Z79.84 Long term (current) use of oral hypoglycemic drugs
CPT/HCPCS: 32555; 36415; 36569; 36600; 70544; 70553; 71045; 71046; 76604; 76770; 76937; 80048; 80061; 80076; 80305; 82140; 82375; 82550; 82553; 82570; 82607; 82746; 82805; 82962; 83036; 83540; 83550; 83615; 83735; 83880; 84100; 84132; 84156; 84300; 84439; 84443; 84481; 84484; 85027; 85347; 85520; 86850; 86900; 86920; 86927; 87070; 92610; 93005; 93306; 93458; 93880; 93970; 94002; 94003; 94640; 94664; 97110; 97116; 97163; 97166; 97530; 97535; 99285; A4216; A4565; A6261; A9500; C1725; C1729; C1751; C1769; C1887; C1893; C9113; J0282; J0885; J1250; J1644; J1650; J1815; J1940; J2060; J2250; J2270; J2310; J2370; J2405; J2440; J3010; J3370; J3475; J3480; J3490; J7040; J7050; J7060; J7070; J7620; L3908; P9016; P9017; P9034; P9041; P9047; Q0163; Q9967; Q9968

== ENCOUNTER 2018-10-19 09:55 | Emergency (ER) | payer OTHER, MEDICAID ==
[~2018-10-19] VITALS: Ht 172.7 cm; Wt 105.0 kg
[~2018-10-19 09:55] MED LIST: APIX2.5T PO; ATOR10TA69 PO; CARV3.1242 PO; FURO-151 PO; GLIP5TAB12 PO; METF-816 PO; VALS40TA11 PO
[2018-10-19 10:10] VITALS: BP 174/48
== END 2018-10-19 12:12 | disposition home or self-care (01) ==
LOC: ER 10:31
DX: Z48.02 Encounter for removal of sutures (principal); I11.9 Hypertensive heart disease without heart failure; E11.9 Type 2 diabetes mellitus without complications; Z88.0 Allergy status to penicillin; Z95.1 Presence of aortocoronary bypass graft
CPT/HCPCS: 99283